=== PATIENT | female | born 1950 | race Two or more races ===

== ENCOUNTER 2021-07-14 04:13 | Day surgery (SDC) | payer BC, OTHER ==
[2021-07-12 11:33] VITALS: BMI 31.2
[2021-07-14] MEDS ORDERED: MIDAZOLAM HCL 2 MG/2 ML SINGLE DOSE VIAL ONE (07:20)
[2021-07-14] MEDS ORDERED: PROPOFOL 20 ML ONE ×4 (07:20→10:36)
[2021-07-14] MEDS ORDERED: LIDOCAINE HCL 1%, 10 MG/ML (20ML VIAL) ONE (07:22)
[2021-07-14] MEDS ORDERED: BUPIVACAINE HCL/PF 0.5% (5MG/ML) 10 ML VIAL ONE (07:22)
[2021-07-14] MEDS ORDERED: ceFAZolin SODIUM 1 GM VIAL ONE (08:32)
[2021-07-14] MEDS ORDERED: BUPIVACAINE HCL/PF 0.5% (5MG/ML) 10 ML VIAL IJ ONE ×3 (08:35)
[2021-07-14] MEDS ORDERED: LIDOCAINE HCL 1%, 10 MG/ML (20ML VIAL) NR ONE ×3 (08:35)
[2021-07-14] MEDS ORDERED: LACTATED RINGERS SOLUTION 1,000 ML IV SCH (12:00)
[2021-07-14 13:09] VITALS: TEMP 96.8
[2021-07-14 14:08] VITALS: BP 130/72; PULSE 57
== END 2021-07-14 14:05 | disposition home or self-care (01) ==
LOC: JASU-SURG 04:13
PROVIDERS: ATTEND Podiatrist Foot & Ankle Surgery
PROC: 0QSP04Z Reposition Left Metatarsal with Internal Fixation Device, Open Approach (ICD-10-PCS; 2021-07-14)
PROC: 0YQ Anatomical Regions, Lower Extremities, Repair (ICD-10-PCS; 2021-07-14)
PROC: 0SGN04Z Fusion of Left Metatarsal-Phalangeal Joint with Internal Fixation Device, Open Approach (ICD-10-PCS; principal; 2021-07-14 08:00)
PROC: 0SRQ0JZ Replacement of Left Toe Phalangeal Joint with Synthetic Substitute, Open Approach (ICD-10-PCS; 2021-07-14 08:00)
DX: M20.22 Hallux rigidus, left foot (principal); M20.42 Other hammer toe(s) (acquired), left foot; M24.875 Other specific joint derangements left foot, not elsewhere classified; M79.672 Pain in left foot; M77.42 Metatarsalgia, left foot
CPT/HCPCS: 28285; 28308; 28313; 28750; C1713; 73630-TC-LT; 76000-TC-FY; 94760; 97116-GP

== ENCOUNTER 2022-01-28 04:36 | Day surgery (SDC) | payer BC, OTHER ==
[2022-01-27 11:28] VITALS: BMI 31.6
[2022-01-28 10:05] VITALS: PULSE 50; RESP 20
[2022-01-28] MEDS ORDERED: LIDOCAINE HCL 1%, 10 MG/ML (20ML VIAL) ONE (12:36)
[2022-01-28] MEDS ORDERED: BUPIVACAINE HCL/PF 0.5% (5MG/ML) 10 ML VIAL ONE (12:37)
[2022-01-28] MEDS ORDERED: LIDOCAINE HCL 1%, 10 MG/ML (20ML VIAL) INF ONE (13:00)
[2022-01-28] MEDS ORDERED: BUPIVACAINE HCL/PF 0.5% (5MG/ML) 10 ML VIAL IJ ONE (13:00)
[2022-01-28] MEDS ORDERED: ACETAMINOPHEN INJECTION 100 ML IVPB ONE (13:07)
[2022-01-28] MEDS ORDERED: MIDAZOLAM HCL 2 MG/2 ML SINGLE DOSE VIAL ONE (13:10)
[2022-01-28] MEDS ORDERED: ceFAZolin 2 GRAM PREMIX BAG IVPB ONE (13:10)
[2022-01-28 15:50] VITALS: BP 128/62; TEMP 97.6
== END 2022-01-28 14:50 | disposition home or self-care (01) ==
LOC: JASU-SURG 04:36
PROVIDERS: ATTEND Podiatrist Foot & Ankle Surgery
PROC: 0SNN0ZZ Release Left Metatarsal-Phalangeal Joint, Open Approach (ICD-10-PCS; 2022-01-28)
PROC: 0SRQ0JZ Replacement of Left Toe Phalangeal Joint with Synthetic Substitute, Open Approach (ICD-10-PCS; principal; 2022-01-28 12:00)
DX: M20.42 Other hammer toe(s) (acquired), left foot (principal)
CPT/HCPCS: 73630-TC-LT; 76000-TC-FY; 88305-TC; 88311-TC; 93005; 93010